=== PATIENT | male | born 1940 ===

== ENCOUNTER 2018-03-08 10:18 | Inpatient (IN) | payer MEDICARE ==
--- NOTE | 2018-03-08 10:27 | ED PDOC ---
Arrival/HPI - General Time Seen by Provider: 03/08/18 10:23 Historian: Patient, EMS - History of Present Illness Narrative History of Present Illness (Text): 03/08/18 10:33 77 Year old male, who presents via EMS to the Emergency department s/p almost "passing out" witnessed by bystanders prior to arrival. Per EMS, bystanders had called in stating the patient was almost about to pass out but once EMS got to him patient was alert. When EMS made patient stand, he rolled his eyes back " for a few seconds" but became responsive once he was lying down. Patient is currently complaining of intermittent lower abdominal pain, associated with lack of appetite and generalized weakness. He denies headache. Denies chest pain. Denies shortness of breath. Denies nausea or vomiting. PMD: Dr. Wei 03/08/18 16:44 Time/Duration: Prior to Arrival Symptom Onset: Sudden Symptom Course: Unchanged Context: Street Past Medical History - Provider Review Nursing Documentation Reviewed: Yes Family/Social History - Physician Review Nursing Documentation Reviewed: Yes Family/Social History: Unknown Family HX Allergies/Home Meds Allergies/Adverse Reactions: Allergies No Known Allergies Allergy (Verified 03/08/18 10:30) Home Medications: Home Meds Medication Instructions Recorded Confirmed No Known Home Med 03/08/18 03/08/18 Review of Systems - Review of Systems Constitutional: Fatigue, Weight Change. absent: Fevers, Night Sweats Eyes: Vision Changes. absent: Photophobia, Eye Pain Respiratory: absent: SOB, Cough Cardiovascular: absent: Chest Pain Gastrointestinal: Abdominal Pain, Diarrhea, Appetite Changes. absent: Nausea, Vomiting Genitourinary Male: Urinary Output Changes. absent: Dysuria, Hematuria Musculoskeletal: absent: Back Pain Skin: absent: Rash Neurological: absent: Headache, Dizziness Endocrine: absent: Diaphoresis Hemo/Lymphatic: absent: Easy Bleeding Psychiatric: absent: Depression Physical Exam - Physical Exam Narrative Physical Exam (Text): 03/08/18 Head: Atraumatic. Normocephalic. Eyes: PERRL. EOMI. Conjunctivae are pale. ENT: Mucous membranes are dry. Oropharynx is clear and symmetric. No edema or exudates. No stridor. Neck: Supple. Full ROM. No JVD. No lymphadenopathy. Cardiovascular: Regular rate. Regular rhythm. Systolic murmur. Distal pulses are 2+ and symmetric. Pulmonary/Chest: No evidence of respiratory distress. Clear to auscultation bilaterally. No wheezing, rales or rhonchi. Abdominal: Soft and non-distended. Mild left lower quadrant abdominal pain. No rebound, guarding, or rigidity. No organomegaly. Good bowel sounds. Back: No CVA tenderness. No midline tenderness. Genitourinary: no testicular edema or erythema, indwelling bunch catheter in place Rectal: no active bleeding or melena Extremities: No edema. No cyanosis. No clubbing. Full range of motion in all extremities. No calf tenderness. Skin: Skin is pale and diaphoretic. No petechiae. No purpura. Neurological: Alert, awake, and oriented. Motor and sensory exam intact. No slurred speech. No facial droop. Psychiatric: Good eye contact. Normal interaction, affect, and behavior. 03/08/18 16:58 Vital Signs Reviewed: Yes Vital Signs Temp Pulse Resp BP Pulse Ox 03/08/18 15:11 98 F 71 18 113/62 98 03/08/18 13:00 74 18 119/77 98 03/08/18 11:40 97.6 F 70 18 109/70 99 03/08/18 10:37 97.4 F L 61 18 99/49 L 100 Temperature: Afebrile Blood Pressure: Hypotensive Pulse: Regular Respiratory Rate: Normal Appearance: Positive for: Non-Toxic, Comfortable, Cachectic Pain Distress: Mild Mental Status: Positive for: Alert and Oriented X 3 Medical Decision Making ED Course and Treatment: 03/08/18 Impression: Patient evaluated upon arrival. History supplemented by friends and family at bedside. Patient currently is alert, conversive, no focal deficits. Mild hypotension noted. IV fluids given. He states that he is unaware of his medical history but states he travels back and forth from [facility] and recently evaluated by a ham passer as well as Dr. Yohan Wei. Call placed to his PMD to obtain further history. Plan: -- EKG -- CXR -- CT Head -- CT abdomen and pelvis -- Labs -- Sodium Chloride -- Urinalysis -- Reassess and disposition Progress Notes: 03/08/18 10:50 Case discussed with patient's PMD Dr. Fede Wei, to obtain further history. Patient has been evaluated by him and gastroentrologist and has had complaints of weight loss. Patient reportedly has PMH of hydronephrosis with indwelling folley as well as elevated PSA. Given this history we will initiated IV hydration as patient is hypotensive, obtain labs, and scan abdomen and pelvis. 03/08/18 11:30 Based on a fax sent by Dr. Wei, the CT abdomen and pelvis scan was taken on and showed the following impressions: 1. Circumferential soft tissue thickening of the bladder wall could related to severe hypertrophy or malignant infiltration. There is resultant bilateral severe hydronephrosis and hydroureter likely secondary to obstruction at the level of the bladder trigone's. 2. Metastatic nodules identified within the lung bases. 3. Metastatic sclerotic osseous lesions within the lumbar spine and sacrum. No appreciable acute fracture. 4. Low-attenuation lesions within the liver are nonspecific and could related to benign or aggressive etiologies. THIS CT RESULT IS FROM 02/18/18. Patient with serial exams is comfortable while laying on stretcher. No further abdominal pain. No headache. No fever. Repeat CT obtained here at [place], it is suggestive of possible metastatic process. Case d/w hospitalist, covering for Dr. Wei, patient admitted for syncope, possible metastatic cancer. On re-exam, he has improved BP, no focal motor or sensory deficits. 03/08/18 17:10 - Lab Interpretations Lab Results: 03/08/18 10:40 03/08/18 10:40 Lab Results 03/08/18 10:40: pO2 40, VBG pH 7.29 L, VBG pCO2 50.0, VBG HCO3 24.0, VBG Total CO2 25.5, VBG O2 Sat (Calc) 80.9 H, VBG Base Excess -3.1 L, VBG Potassium 4.1, Sodium 140.0, Chloride 111.0 H, Glucose 126 H, Lactate 1.4, FiO2 21.0, Venous Blood Potassium 4.1 03/08/18 10:40: PT 12.1, INR 1.05, APTT 27.8 03/08/18 10:40: WBC 7.4, RBC 3.25 L, Hgb 9.9 L, Hct 29.0 L, MCV 89.2, MCH 30.5, MCHC 34.1, RDW 13.5, Plt Count 272, MPV 9.1, Gran % 50.3, Lymph % (Auto) 37.3 H , [place] % (Auto) 7.3 H, Eos % (Auto) 4.7, Baso % (Auto) 0.4, Gran # 3.74, Lymph # (Auto) 2.8, [place] # (Auto) 0.5, Eos # (Auto) 0.4, Baso # (Auto) 0.03 03/08/18 10:40: Sodium 143, Chloride 108 H, Potassium 4.1, Carbon Dioxide 24, Anion Gap 16, BUN 33 H, Creatinine 1.4, Est GFR ( Amer) 59, Est GFR (Non- Af Amer) 49, Random Glucose 121 H, Calcium 8.6, Magnesium 1.9, Total Bilirubin < 0.1 L, AST 23, ALT 31, Alkaline Phosphatase 156 H, Lactate Dehydrogenase 337, Total Creatine Kinase 37, Troponin I < 0.01, NT-Pro-B Natriuret Pep 121, Total Protein 6.7, Albumin 3.7, Globulin 3.0, Albumin/Globulin Ratio 1.3, Amylase 75, Lipase < 10 L I have reviewed the lab results: Yes - RAD Interpretation Radiology Orders: 03/08/18 10:37 CHEST PORTABLE [RAD] Stat 03/08/18 10:38 HEAD W/O CONTRAST [CT] Stat 03/08/18 10:46 ABD & PELVIS W/O PO OR IV CONT [CT] Stat Director Hospice Operations: Radiologist - EKG Interpretation EKG Interpretation (Text): 03/08/18 16:57 EKG at 1032 normal sinus rhythm rate of 61 with right bundle branch block Interpreted by ED Physician: Yes Type: 12 lead EKG - Medication Orders Current Medication Orders: Acetaminophen (Tylenol 325mg Tab) 650 mg PO Q6H PRN PRN Reason: Fever >100.4 F Enoxaparin Sodium (Lovenox) 40 mg SC Q24H ROBBI PRN Reason: Protocol Famotidine (Pepcid) 20 mg PO 1000,2200 ROBBI Ondansetron HCl (Zofran Inj) 4 mg IVP Q6H PRN PRN Reason: Nausea/Vomiting Discontinued Medications Enoxaparin Sodium (Lovenox) 70 mg SC Q24H ROBBI PRN Reason: Protocol Last Admin: 03/08/18 15:07 Dose: 70 mg Subcutaneous Administrations Document 03/08/18 15:07 BECKY (Rec: 03/08/18 15:08 BECKY [id number]) Injection Site MAR Injection Site Right Abdomen Charges for Administration # of Subcutaneous Administrations 1 Sodium Chloride (Sodium Chloride 0.9%) 1,000 mls @ 1,000 mls/hr IV .Q1H STA Stop: 03/08/18 11:37 Last Admin: 03/08/18 11:10 Dose: 1,000 mls/hr eMAR Start Stop Document 03/08/18 11:10 BECKY (Rec: 03/08/18 11:36 BECKY [id number]) Intravenous Solution Start Date 03/08/18 Start Time 11:10 End Date 03/08/18 End time 12:10 Total Infusion Time 60 Sodium Chloride (Sodium Chloride 0.9%) 2,000 mls @ 999 mls/hr IV .Q2H1M STA Stop: 03/08/18 16:01 Last Admin: 03/08/18 14:15 Dose: 999 mls/hr eMAR Start Stop Document 03/08/18 14:15 BECKY (Rec: 03/08/18 14:21 BECKY [id number]) Intravenous Solution Start Date 03/08/18 Start Time 14:15 End Date 03/08/18 End time 16:15 Total Infusion Time 120 - Scribe Statement The provider has reviewed the documentation as recorded by the Gibson Hudson Provider Scribe Attestation: All medical record entries made by the Scribe were at my direction and personally dictated by me. I have reviewed the chart and agree that the record accurately reflects my personal performance of the history, physical exam, medical decision making, and the department course for this patient. I have also personally directed, reviewed, and agree with the discharge instructions and disposition. Disposition/Present on Arrival - Present on Arrival Any Indicators Present on Arrival: Yes Urinary Catheter: Yes - Disposition Have Diagnosis and Disposition been Completed?: Yes Diagnosis: Syncope, Metastatic cancer, Anemia Disposition: HOSPITALIZED Disposition Time: 12:35 Patient Plan: Admission, Telemetry Patient Problems: Current Active Problems Problem Status Onset Anemia Acute Metastatic cancer Acute Syncope Acute Condition: SERIOUS
[2018-03-08] MEDS ORDERED: Sodium Chloride 0.9% 1,000 ML IV STA (10:38)
--- NOTE | 2018-03-08 11:02 | RAD ---
HISTORY: syncope COMPARISON: No prior. FINDINGS: LUNGS: No active pulmonary disease. PLEURA: No significant pleural effusion identified, no pneumothorax apparent. CARDIOVASCULAR: Normal. OSSEOUS STRUCTURES: No significant abnormalities. VISUALIZED UPPER ABDOMEN: Normal. OTHER FINDINGS: None. IMPRESSION: No active disease.
[2018-03-08 11:16] LABS: BASO # 0.03 K/mm3 (0.0-2.0); BASO % 0.4 % (0.0-3.0); EOS # 0.4 (0.0-0.7); EOS % 4.7 % (1.5-5.0); GRAN # 3.74 (1.4-6.5); GRAN % 50.3 % (50.0-68.0); HEMOGLOBIN 9.9 g/dL (14.0-18.0); LYMPH # 2.8 (1.2-3.4); LYMPH % 37.3 % (22.0-35.0); MEAN CELL VOLUME 89.2 fl (80.0-105.0); MEAN CORPUSCULAR HEMOGLOBIN 30.5 pg (25.0-35.0); MEAN CORPUSCULAR HGB CONC 34.1 g/dl (31.0-37.0); MEAN PLATELET VOLUME 9.1 fl (7.0-11.0); MONO # 0.5 (0.1-0.6); MONO % 7.3 % (1.0-6.0); RBC 3.25 10^6/uL (3.5-6.1); RED CELL DISTRIBUTION WIDTH 13.5 % (11.5-14.5); WHITE BLOOD COUNT 7.4 10^3/ul (4.5-11.0)
[2018-03-08 11:17] LABS: VENOUS BLOOD GAS BASE EXCESS -3.1 mmol/L (0.0-2.0); VENOUS BLOOD GAS PO2 40 mm/Hg (30-55); VENOUS BLOOD PH 7.29 (7.32-7.43)
[2018-03-08 11:25] LABS: ALB/GLOB RATIO 1.3 (1.1-1.8); ALBUMIN 3.7 g/dL (3.0-4.8); ALT/SGPT 31 U/L (7-56); AMYLASE 75 U/L (35-125); AST/SGOT 23 U/L (17-59); BLOOD UREA NITROGEN 33 mg/dL (7-21); CALCIUM 8.6 mg/dL (8.4-10.5); GFR AFRICAN-AMERICAN 59; GFR NON-AFRICAN AMERICAN 49
[2018-03-08 11:26] LABS: INR 1.05 (0.93-1.08); PROTHROMBIN TIME 12.1 SECONDS (9.4-12.5)
[2018-03-08 11:27] LABS: PARTIAL THROMBOPLASTIN TIME 27.8 Seconds (25.1-36.5)
[2018-03-08 11:34] LABS: LIPASE < 10 U/L (23-300)
[2018-03-08 11:37] LABS: B-TYPE NATRIURETIC PEPTIDE 121 pg/mL (0-450); TROPONIN I < 0.01 ng/mL
--- NOTE | 2018-03-08 11:37 | CT ---
PROCEDURE: CT HEAD WITHOUT CONTRAST. HISTORY: syncope COMPARISON: None available. TECHNIQUE: Axial computed tomography images were obtained through the head/brain without intravenous contrast. Radiation dose: Total exam DLP = 802.44 mGy-cm. This CT exam was performed using one or more of the following dose reduction techniques: Automated exposure control, adjustment of the mA and/or kV according to patient size, and/or use of iterative reconstruction technique. FINDINGS: HEMORRHAGE: No intracranial hemorrhage. BRAIN: No mass effect or edema. Mild periventricular white matter lucency consistent with chronic microvascular ischemic change. No evidence of acute infarct. 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 VENTRICLES: Unremarkable. No hydrocephalus. CALVARIUM: Unremarkable. PARANASAL SINUSES: Unremarkable as visualized. No significant inflammatory changes. MASTOID AIR CELLS: Unremarkable as visualized. No inflammatory changes. OTHER FINDINGS: None. IMPRESSION: No intracranial mass, hemorrhage or evidence of acute infarct. Mild atrophy and mild chronic white matter ischemic change. 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
--- NOTE | 2018-03-08 11:50 | CT ---
PROCEDURE: CT Abdomen and Pelvis without intravenous contrast HISTORY: abdomnal pain, ? hx of malignancy COMPARISON: None. TECHNIQUE: Without contrast.. Contrast dose: 0 Radiation dose: Total exam DLP = 464.14 mGy-cm. This CT exam was performed using one or more of the following dose reduction techniques: Automated exposure control, adjustment of the mA and/or kV according to patient size, and/or use of iterative reconstruction technique. FINDINGS: LOWER THORAX: No infiltrate. Multiple small nodules at lung bases, largest 8 mm in right middle lobe. Cardiomegaly and trace pericardial effusion. LIVER: Normal size and contour. Several nonspecific rounded low-attenuation lesions in the left lobe of the liver, largest 4.7 cm. Nonspecific. Correlate with ultrasound. GALLBLADDER AND BILE DUCTS: Unremarkable. PANCREAS: Severe fatty atrophy. No mass appreciated. No evidence of pancreatitis. SPLEEN: Normal size. There is a rind -like calcification measuring 1.7 cm in greatest dimension. Uncertain significance. Possible calcified hemangioma/lymphangioma. ADRENALS: Unremarkable. No mass. KIDNEYS AND URETERS: Low-density vaguely ovoid mass lower pole right kidney, 1.9 x 3.3 cm, with a small amount of mural calcification. Uncertain significance. This should be correlated with ultrasound examination any prior outside CT examination. No other renal mass. No hydronephrosis. VASCULATURE: Unremarkable. No aortic aneurysm. BOWEL: Unremarkable. No obstruction. No gross mural thickening. APPENDIX: Not identified. No secondary findings to suggest acute appendicitis. PERITONEUM: No ascites or pneumoperitoneum. There is ill-defined increased attenuation in the region of the left internal inguinal ring. Please correlate with any history of herniorrhaphy. LYMPH NODES: Unremarkable. No enlarged lymph nodes. BLADDER: Bladder is significant for the presence of a Cord[place] catheter. The bladder contents are high in attenuation suggesting possible hematuria. Please correlate. Alternatively, this could represent very concentrated urine from dehydration. REPRODUCTIVE: Normal prostate BONES: Sclerotic osseous metastasis noted in multiple lumbosacral vertebrae. OTHER FINDINGS: None. IMPRESSION: Multiple small nodules at lung bases. Sclerotic osseous metastases. Nonspecific low-density masses in left lobe of liver. Correlate with ultrasound examination. Nonspecific low-density mass in lower pole right kidney with some curvilinear mural calcification. Correlate with ultrasound. Please correlate these findings of any prior outside CT examinations. High attenuation of bladder contents. Please correlate for possible hematuria. Please correlate for any history of prior left herniorrhaphy.
[2018-03-08 13:39] LABS: URINE BILIRUBIN NEGATIVE (NEGATIVE); URINE BLOOD MODERATE (NEGATIVE); URINE GLUCOSE (UA) NEGATIVE (NEGATIVE); URINE LEUKOCYTE ESTERASE SMALL Leu/uL (NEGATIVE); URINE PROTEIN 30 mg/dL (<30 mg/dL); URINE UROBILINOGEN 0.2 E.U./dL (<1 E.U./dL)
[2018-03-08 13:40] LABS: URINE APPEARANCE CLEAR (CLEAR); URINE COLOR YELLOW (YELLOW)
--- NOTE | 2018-03-08 13:46 | CARD ---
APPROVED REPORT EKG Measurement Heart [id number] <Conclusion> Normal sinus rhythm Right bundle branch block Abnormal ECG
[2018-03-08 13:56] LABS: URINE BACTERIA TRACE (NEG)
[2018-03-08] MEDS ORDERED: Sodium Chloride 0.9% 2,000 ML IV STA (14:01)
--- NOTE | 2018-03-08 14:35 | CP.PCM.HP ---
<Martin Garciaon Monty - Last Filed: 03/08/18 15:47> History of Present Illness - History of Present Illness History of Present Illness: Chief Complaint: Fall due to Lightheadedness without loss of consciousness HPI: Patient is a 77 M with a history of possible cancer mets with unknown primary source presenting with complaints of abdominal pain and lightheadedness which led to him falling this morning. Patient states he woke up feeling fine however he has not been eating as much as of late. Today he took medication on an empty stomach then later this morning patient states he did not drink however consumed a muffin. When walking he felt lightheaded and as a result tried to hold on to a light pole and then fell to the ground causing an abrasion on his left elbow. Patient denies loss of consciousness, head trauma, changes in vision, urinary/bowel incontinence, chest pain, palpitations, headaches, body aches, body injuries, fevers, chills. PMD: Dr. Wei Surgical history: appendectomy, hernia repair Social history: Denies tobacco and drug abuse. Admits to occasional socia lalcohol use Past medical history: denies Family history: significant for cancer in mother: esophageal (no previous history of tobacco/alcohol abuse), mother's siblings: gastric cancer, lung cancer Allergies: denies CT abdomen/pelvis: Lungs: multiple small nodules at lung bases, largest 8 mm in right middle lobe. Liver: low attenuation lesions in the left lobe of the liver , largest 4.7 cm. Kidneys and ureters; low density vaguely ovoid mass lower pole right kidney 1.9 x 3.3 cm. Bones: sclerotic osseous metastasis noted in multiple lumbosacral vertebrae. Colonoscopy findings: tubular adenoma polyp of transverse colon 6 mm, moderate diverticulosis of left side of colon and transverse colon, internal hemorrhoids Gastrum findings: h. pylori gastritis Mid esophagus: no intestinal metaplasia Present on Admission - Present on Admission Any Indicators Present on Admission: No Review of Systems - Constitutional Constitutional: Anorexia, Weight Loss, Weakness. absent: Chills, Frequent Falls (one fall), Headache, Night Sweats - EENT Eyes: absent: Blurred Vision, Diplopia - Cardiovascular Cardiovascular: absent: Chest Pain, Dyspnea - Respiratory Respiratory: absent: Cough, Dyspnea - Gastrointestinal Gastrointestinal: Nausea. absent: Diarrhea, Vomiting - Genitourinary Genitourinary: absent: Hematuria - Musculoskeletal Musculoskeletal: absent: Back Pain - Neurological Neurological: Dizziness. absent: Headaches - Psychiatric Psychiatric: Change in Appetite (loss of appetite) - Endocrine Endocrine: absent: Polyphagia, Polyuria Past Patient History - Infectious Disease Hx of Infectious Diseases: None - Past Social History Smoking Status: Never Smoked - PSYCHIATRIC Hx Substance Use: No - SURGICAL HISTORY Hx Surgeries: Yes Hx Appendectomy: Yes Hx Herniorrhaphy: Yes Hx Orthopedic Surgery: Yes (Left Shoulder) Meds Allergies/Adverse Reactions: Allergies Allergy/AdvReac Type Severity Reaction Status Date / Time No Known Allergies Allergy Verified 03/08/18 10:30 Physical Exam - Head Exam Head Exam: ATRAUMATIC, NORMAL INSPECTION, NORMOCEPHALIC - Eye Exam Eye Exam: EOMI, Normal appearance - ENT Exam ENT Exam: Mucous Membranes Moist, Normal Exam - Neck Exam Neck exam: Positive for: Normal Inspection - Respiratory Exam Respiratory Exam: Clear to Auscultation Bilateral, NORMAL BREATHING PATTERN. absent: Rhonchi, Wheezes - Cardiovascular Exam Cardiovascular Exam: REGULAR RHYTHM, +S1, +S2 - GI/Abdominal Exam GI & Abdominal Exam: Normal Bowel Sounds, Soft - Extremities Exam Extremities exam: Positive for: normal inspection - Back Exam Back exam: NORMAL INSPECTION - Neurological Exam Neurological exam: Alert, CN II-XII Intact, Oriented x3 - Psychiatric Exam Psychiatric exam: Normal Affect, Normal Mood - Skin Skin Exam: Normal Color, Warm Results - Vital Signs Recent Vital Signs: Last Vital Signs Temp 97.4 F L 03/08/18 10:37 Pulse 61 03/08/18 10:37 Resp 18 03/08/18 10:37 BP 99/49 L 03/08/18 10:37 Pulse Ox 100 03/08/18 10:37 - Labs Result Diagrams: 03/08/18 10:40 03/08/18 10:40 Labs: Laboratory Results - last 24 hr 03/08/18 13:20 Urine Color Yellow Urine Appearance Clear Urine pH 6.0 Ur Specific [place] 1.015 Urine Protein 30 H Urine Glucose (UA) Negative Urine Ketones Negative Urine Blood Moderate H Urine Nitrate Negative Urine Bilirubin Negative Urine Urobilinogen 0.2 Ur Leukocyte Esterase Small H Urine RBC 2 - 5 Urine WBC 5 - 10 Urine Bacteria Trace Assessment & Plan - Assessment and Plan (Free Text) Assessment: 77 M with no significant past medical history recently found to have 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 Plan: Syncope secondary to dehydration -Echocardiogram ordered -Carotid duplex ultrasound ordered; results pending -Orthostatic vital signs ordered -2 liters of fluids -CT chest ordered -Serial troponins ordered; first result negative -TSH ordered -Physical therapy Cancer Metastasis -CT abdomen/pelvis: Lungs: multiple small nodules at lung bases, largest 8 mm in right middle lobe. Liver: low attenuation lesions in the left lobe of the liver, largest 4.7 cm. Kidneys and ureters; low density vaguely ovoid mass lower pole right kidney 1.9 x 3.3 cm. Bones: sclerotic osseous metastasis noted in multiple lumbosacral vertebrae. -Patient to follow up with PMD regarding findings History of urinary retention/Bilateral hydronephrosis/Chronic indwelling bunch catheter -Patient endorses history of hematuria -Patient originally scheduled for bunch assessment tomorrow at [place] -Urology consult DVT/GI prophylaxis: Lovenox,Protonix <Celina Vizcaino - Last Filed: 03/09/18 16:09> Results - Vital Signs Recent Vital Signs: Last Vital Signs Temp 98.1 F 03/09/18 11:50 Pulse 72 03/09/18 11:50 Resp 18 03/09/18 11:50 BP 117/56 L 03/09/18 11:50 Pulse Ox 98 03/09/18 06:00 - Labs Result Diagrams: 03/09/18 07:45 03/09/18 07:45 Labs: Laboratory Results - last 24 hr 03/08/18 03/08/18 03/08/18 16:00 16:00 22:46 WBC RBC Hgb Hct MCV MCH MCHC RDW Plt Count MPV Gran % Lymph % (Auto) [place] % (Auto) Eos % (Auto) Baso % (Auto) Gran # Lymph # (Auto) [place] # (Auto) Eos # (Auto) Baso # (Auto) Sodium Potassium Chloride Carbon Dioxide Anion Gap BUN Creatinine Est GFR ( Amer) Est GFR (Non-Af Amer) Random Glucose Calcium Total Bilirubin AST ALT Alkaline Phosphatase Troponin I < 0.01 < 0.01 Total Protein Albumin Globulin Albumin/Globulin Ratio TSH 3rd Generation 4.63 03/09/18 03/09/18 07:45 07:45 WBC 6.2 RBC 3.14 L Hgb 9.5 L Hct 28.0 L MCV 89.2 MCH 30.3 MCHC 33.9 RDW 13.8 Plt Count 231 MPV 9.0 Gran % 62.6 Lymph % (Auto) 24.0 [place] % (Auto) 7.8 H Eos % (Auto) 5.0 Baso % (Auto) 0.6 Gran # 3.86 Lymph # (Auto) 1.5 [place] # (Auto) 0.5 Eos # (Auto) 0.3 Baso # (Auto) 0.04 Sodium 145 Potassium 4.9 Chloride 112 H Carbon Dioxide 23 Anion Gap 14 BUN 30 H Creatinine 1.3 Est GFR ( Amer) > 60 Est GFR (Non-Af Amer) 53 Random Glucose 92 Calcium 8.7 Total Bilirubin 0.1 L AST 22 ALT 30 Alkaline Phosphatase 148 H Troponin I Total Protein 6.3 Albumin 3.5 Globulin 2.9 Albumin/Globulin Ratio 1.2 TSH 3rd Generation Attending/Attestation - Attestation I have personally seen and examined this patient.: Yes I have fully participated in the care of the patient.: Yes I have reviewed all pertinent clinical information: Yes Notes (Text): 03/09/18 16:06 Medical record note made by the resident after discussion with my direction and input after the patient was personally seen and examined by me. I have reviewed the chart and agree that the record accurately reflects by personal performance of the history, physical exam, data review, and medical decision-making, in the course for the patient. I have also personally directed the plan of care. 77 Years old male with PMH of recent admission at [facility] for hematuria, bilateral hydronephrosis , he is on indwelling Bunch cathere,has H/ O bony , liver and lung metastasis, Primary is unknown, could be Prostate is admitted with Presyncope and fall due to hypotension . Patient Neuro examination is normal.There is no focal deficit.Patient symptoms are improved with IV hydration. We will also get Urology evaluation. Management plan was discussed in detail with patient. Education was provided.
[2018-03-08] MEDS ORDERED: Enoxaparin 80 mg Syringe SC SCH (15:00)
--- NOTE | 2018-03-08 15:32 | CT ---
PROCEDURE: CT Chest without contrast HISTORY: multiple small nodules at lung bases COMPARISON: None. TECHNIQUE: Contiguous axial images were obtained through the chest without intravenous contrast enhancement. Sagittal and coronal reconstructions were performed. Radiation dose (DLP): 306 mGy-cm. This CT exam was performed using one or more of the following dose reduction techniques: Automated exposure control, adjustment of the mA and/or kV according to patient size, and/or use of iterative reconstruction technique. FINDINGS: LUNGS: There is a 13 mm nodule in the right middle lobe image 69 series 3. There is a grouping of small nodules in the inferior aspect of the right upper lobe the largest measuring 6 mm. This can be seen on image 62. There is also a 9 mm nodule in the left upper lobe image 65. 4 mm nodule in the left lower lobe adjacent to the aorta image 89. MEDIASTINUM: Unremarkable thoracic aorta. No aneurysm. Normal sized heart. Main pulmonary artery unremarkable. No vascular congestion. No lymphadenopathy. PLEURA: No pleural fluid. No pneumothorax. BONES: No fracture. No destructive lesion. UPPER ABDOMEN: Simple cysts in the liver OTHER FINDINGS: None. IMPRESSION: Multiple pulmonary nodules the largest in the right middle lobe measuring 13 mm. Findings consistent with metastatic disease.
[2018-03-08] MEDS ORDERED: Enoxaparin 40 mg Syringe SC SCH (16:29)
[2018-03-08 20:09] VITALS: BMI 19.8
[2018-03-08] MEDS ORDERED: Pneumococcal 23-Valent Vaccine IM ONE (20:09)
--- NOTE | 2018-03-08 21:47 | US ---
PROCEDURE: Bilateral carotid artery duplex us HISTORY: Carotid stenosis PHYSICIAN(S): Dayne Soto MD. TECHNIQUE: Duplex sonography and color-flow Doppler were used to evaluate the carotid bifurcations and limited segments of the vertebral arteries bilaterally. FINDINGS: There is mild to moderate smooth heterogeneous plaque noted at the carotid bifurcations bilaterally. The peak systolic velocity in the proximal right internal carotid artery is 104 cm/sec. This corresponds to a 20 to 39% proximal right ICA stenosis. Normal systolic velocities are noted in the proximal right external carotid artery. There is antegrade flow in the right vertebral artery. The peak systolic velocity in the proximal left internal carotid artery is 130 Cm/sec. This corresponds to a 40-59% proximal left ICA stenosis. Normal systolic velocities are noted in the proximal left external carotid artery. There is antegrade flow in the left vertebral artery. IMPRESSION: 1. 40-59% proximal left ICA stenosis. 2. 20-39% proximal right ICA stenosis. 3. Antegrade flow in both vertebral arteries.
[2018-03-09 06:14] VITALS: O2SAT 98
[2018-03-09 08:06] LABS: BASO # 0.04 K/mm3 (0.0-2.0); BASO % 0.6 % (0.0-3.0); EOS # 0.3 (0.0-0.7); GRAN # 3.86 (1.4-6.5); GRAN % 62.6 % (50.0-68.0); HEMOGLOBIN 9.5 g/dL (14.0-18.0); LYMPH # 1.5 (1.2-3.4); MEAN CELL VOLUME 89.2 fl (80.0-105.0); MEAN CORPUSCULAR HEMOGLOBIN 30.3 pg (25.0-35.0); MEAN CORPUSCULAR HGB CONC 33.9 g/dl (31.0-37.0); MONO # 0.5 (0.1-0.6); MONO % 7.8 % (1.0-6.0); RBC 3.14 10^6/uL (3.5-6.1); RED CELL DISTRIBUTION WIDTH 13.8 % (11.5-14.5); WHITE BLOOD COUNT 6.2 10^3/ul (4.5-11.0)
[2018-03-09 08:15] LABS: ALB/GLOB RATIO 1.2 (1.1-1.8); ALBUMIN 3.5 g/dL (3.0-4.8); ALT/SGPT 30 U/L (7-56); AST/SGOT 22 U/L (17-59); BLOOD UREA NITROGEN 30 mg/dL (7-21); CALCIUM 8.7 mg/dL (8.4-10.5); GFR AFRICAN-AMERICAN > 60; GFR NON-AFRICAN AMERICAN 53
[2018-03-09 11:50] VITALS: BP 117/56; PULSE 72; RESP 18; TEMP 98.1
--- NOTE | 2018-03-09 14:21 | CP.PCM.DIS ---
Provider - Provider Date of Admission: 03/08/18 12:15 Attending physician: Celina Vizcaino MD Primary care physician: Jules Wei MD Consults: Urology: Dr. Ramy Alcala Time Spent in preparation of Discharge (in minutes): 40 Diagnosis - Discharge Diagnosis (1) Pre-syncope Status: Acute Priority: High (2) Hypotension Status: Acute Priority: High (3) Loss of appetite Status: Chronic Priority: High (4) Anemia Status: Chronic Priority: Medium (5) Metastatic cancer Status: Acute Priority: High (6) UTI (urinary tract infection) Status: Acute Priority: Low Hospital Course - Lab Results Lab Results: Micro Results 03/08/18 13:20 Urine Urine Culture - Preliminary Gram Positive Cocci Most Recent Lab Values WBC 6.2 10^3/ul (4.5-11.0) 03/09/18 07:45 RBC 3.14 10^6/uL (3.5-6.1) L 03/09/18 07:45 Hgb 9.5 g/dL (14.0-18.0) L 03/09/18 07:45 Hct 28.0 % (42.0-52.0) L 03/09/18 07:45 MCV 89.2 fl (80.0-105.0) 03/09/18 07:45 MCH 30.3 pg (25.0-35.0) 03/09/18 07:45 MCHC 33.9 g/dl (31.0-37.0) 03/09/18 07:45 RDW 13.8 % (11.5-14.5) 03/09/18 07:45 Plt Count 231 10^3/uL (120.0-450.0) 03/09/18 07:45 MPV 9.0 fl (7.0-11.0) 03/09/18 07:45 Gran % 62.6 % (50.0-68.0) 03/09/18 07:45 Lymph % (Auto) 24.0 % (22.0-35.0) 03/09/18 07:45 [place] % (Auto) 7.8 % (1.0-6.0) H 03/09/18 07:45 Eos % (Auto) 5.0 % (1.5-5.0) 03/09/18 07:45 Baso % (Auto) 0.6 % (0.0-3.0) 03/09/18 07:45 Gran # 3.86 (1.4-6.5) 03/09/18 07:45 Lymph # (Auto) 1.5 (1.2-3.4) 03/09/18 07:45 [place] # (Auto) 0.5 (0.1-0.6) 03/09/18 07:45 Eos # (Auto) 0.3 (0.0-0.7) 03/09/18 07:45 Baso # (Auto) 0.04 K/mm3 (0.0-2.0) 03/09/18 07:45 PT 12.1 SECONDS (9.4-12.5) 03/08/18 10:40 INR 1.05 (0.93-1.08) 03/08/18 10:40 APTT 27.8 Seconds (25.1-36.5) 03/08/18 10:40 pO2 40 mm/Hg (30-55) 03/08/18 10:40 VBG pH 7.29 (7.32-7.43) L 03/08/18 10:40 VBG pCO2 50.0 (40-60) 03/08/18 10:40 VBG HCO3 24.0 mmol/l (21-28) 03/08/18 10:40 VBG Total CO2 25.5 mmol.L (22-28) 03/08/18 10:40 VBG O2 Sat (Calc) 80.9 % (40-65) H 03/08/18 10:40 VBG Base Excess -3.1 mmol/L (0.0-2.0) L 03/08/18 10:40 VBG Potassium 4.1 mmol/L (3.6-5.2) 03/08/18 10:40 Sodium 140.0 mmol/L (132-148) 03/08/18 10:40 Chloride 111.0 mmol/L (98-107) H 03/08/18 10:40 Glucose 126 mg/dl (75-110) H 03/08/18 10:40 Lactate 1.4 mmol/L (0.7-2.1) 03/08/18 10:40 FiO2 21.0 % 03/08/18 10:40 Sodium 145 mmol/L (132-148) 03/09/18 07:45 Potassium 4.9 mmol/L (3.6-5.0) 03/09/18 07:45 Chloride 112 mmol/L (98-107) H 03/09/18 07:45 Carbon Dioxide 23 mmol/L (21-33) 03/09/18 07:45 Anion Gap 14 (10-20) 03/09/18 07:45 BUN 30 mg/dL (7-21) H 03/09/18 07:45 Creatinine 1.3 mg/dl (0.8-1.5) 03/09/18 07:45 Est GFR ( Amer) > 60 03/09/18 07:45 Est GFR (Non-Af Amer) 53 03/09/18 07:45 Random Glucose 92 mg/dL (70-110) 03/09/18 07:45 Calcium 8.7 mg/dL (8.4-10.5) 03/09/18 07:45 Magnesium 1.9 mg/dL (1.7-2.2) 03/08/18 10:40 Total Bilirubin 0.1 mg/dL (0.2-1.3) L 03/09/18 07:45 AST 22 U/L (17-59) 03/09/18 07:45 ALT 30 U/L (7-56) 03/09/18 07:45 Alkaline Phosphatase 148 U/L (38-126) H 03/09/18 07:45 Lactate Dehydrogenase 337 U/L (333-699) 03/08/18 10:40 Total Creatine Kinase 37 U/L (35-230) 03/08/18 10:40 Troponin I < 0.01 ng/mL 03/08/18 22:46 NT-Pro-B Natriuret Pep 121 pg/mL (0-450) 03/08/18 10:40 Total Protein 6.3 g/dL (5.8-8.3) 03/09/18 07:45 Albumin 3.5 g/dL (3.0-4.8) 03/09/18 07:45 Globulin 2.9 gm/dL 03/09/18 07:45 Albumin/Globulin Ratio 1.2 (1.1-1.8) 03/09/18 07:45 Amylase 75 U/L (35-125) 03/08/18 10:40 Lipase < 10 U/L (23-300) L 03/08/18 10:40 TSH 3rd Generation 4.63 mIU/mL (0.46-4.68) 03/08/18 16:00 Venous Blood Potassium 4.1 mmol/L (3.6-5.2) 03/08/18 10:40 Urine Color Yellow (YELLOW) 03/08/18 13:20 Urine Appearance Clear (CLEAR) 03/08/18 13:20 Urine pH 6.0 (4.7-8.0) 03/08/18 13:20 Ur Specific [place] 1.015 (1.005-1.035) 03/08/18 13:20 Urine Protein 30 mg/dL (<30 mg/dL) H 03/08/18 13:20 Urine Glucose (UA) Negative mg/dL (NEGATIVE) 03/08/18 13:20 Urine Ketones Negative mg/dL (NEGATIVE) 03/08/18 13:20 Urine Blood Moderate (NEGATIVE) H 03/08/18 13:20 Urine Nitrate Negative (NEGATIVE) 03/08/18 13:20 Urine Bilirubin Negative (NEGATIVE) 03/08/18 13:20 Urine Urobilinogen 0.2 E.U./dL (<1 E.U./dL) 03/08/18 13:20 Ur Leukocyte Esterase Small [place]/uL (NEGATIVE) H 03/08/18 13:20 Urine RBC 2 - 5 /hpf (0-2) 03/08/18 13:20 Urine WBC 5 - 10 /hpf (0-6) 03/08/18 13:20 Urine Bacteria Trace (NEG) 03/08/18 13:20 - Hospital Course Hospital Course: Patient is a 77 year old male with a history of bilateral hydronephrosis s/p chronic indwelling bunch catheter, hematuria, and 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 Radioimaging performed in the emergency department revealed evidence of cancer metastasis. Full report can be assessed on patient's chart for extensive details. Patient was brought to the emergency department for further evaluation. Upon administering fluids patient's symptoms had completely resolved. As part of pre-syncope workup carotid artery dopplers and echocardiogram were ordered. Carotid US results did not require direct intervention and treatment at the moment. Echocardiogram results are still pending and will be followed up by patient's primary care physician. Radioimaging results which showed cancer in the lung, liver, and bone were discussed with patient. Patient declined receiving evaluation and possible treatment by the hematology/oncology department at [facility] stating he prefers to go to [place]. Patient's daughter was also present during the discussion and also wishes to for her father to continue with urology and heme/onc appointments at [place] but would like to continue with Dr. Wei as primary. Discussed case with PMD Dr. Wei and he is aware of the family's desires. Due to patient's history of bunch indwelling catheter and bilateral hydronephrosis, Urology was consulted and patient was started on flomax. Also in lieu of indwelling bunch cather, urinalysis and urine cultures were done. UA reveals mild urinary tract infection and urine cultures were positive for gram positive cocci therefore patient will be sent home on ciprofloxacin. Due to patient being stable from original chief complaint of pre-syncope and lightheadedness as well as increased appetite and toleration of food, patient was cleared for discharge. Patient's daughter expressed that [place] in the [place] for [place] two months a year however I discussed with both the importance for patient to remain [place] the [place] with his new diagnosis of cancer for consistent care. Patient and daughter were both in agreement with plan for discharge and patient was then discharged. Case discussed with Dr. Carrillo Garcia PGY1 Discharge Exam - Head Exam Head Exam: ATRAUMATIC, NORMAL INSPECTION, NORMOCEPHALIC - Eye Exam Eye Exam: EOMI, Normal appearance - ENT Exam ENT Exam: Mucous Membranes Moist - Respiratory Exam Respiratory Exam: Clear to PA & Lateral, NORMAL BREATHING PATTERN, UNREMARKABLE. absent: Rales, Rhonchi, Wheezes - Cardiovascular Exam Cardiovascular Exam: REGULAR RHYTHM, +S1, +S2 - GI/Abdominal Exam GI & Abdominal Exam: Normal Bowel Sounds, Unremarkable - Exam Additional comments: indwelling bunch catheter in place - Extremities Exam Extremities exam: normal inspection - Back Exam Back exam: NORMAL INSPECTION - Neurological Exam Neurological exam: Alert, CN II-XII Intact, Oriented x3 - Psychiatric Exam Psychiatric exam: Normal Affect, Normal Mood - Skin Skin Exam: Normal Color, Warm Discharge Plan - Discharge Medications Prescriptions: Ciprofloxacin [Cipro] 500 mg PO BID #14 tab Mirtazapine [Remeron] 7.5 mg PO DIN #30 tab Tamsulosin [Flomax] 0.4 mg PO DAILY #30 cap - Follow Up Plan Condition: SERIOUS Disposition: HOME/ ROUTINE Instructions: Orthostatic Hypotension (DC), Near Fainting (DC), Syncope (DC), Syncope (GEN) Additional Instructions: Mr. Batista, thank you for letting us take care of you today. Your provider was Dr. Vizcaino and you were treated for pre-syncope. The medical care you received today was directed at your acute symptoms. If you were prescribed any medication, please fill it and take as directed. It may take several days for your symptoms to resolve. Return to the Emergency Department if your symptoms worsen, do not improve, or if you have any other problems. Please contact your doctor or call one of the physicians/clinics you have been referred to that are listed on the Patient Visit Information form that is included in your discharge packet. Bring any paperwork you were given at discharge with you along with any medications you are taking to your follow up visit. Our treatment cannot replace ongoing medical care by a primary care provider outside of the emergency department. Please be sure to follow up with your primary care physician Dr. Jules Wei. Thank you for allowing the [facility] team to be part of your care today. If you had an X-Ray or CT scan: A Radiologist will review the ED reading if any change in treatment is needed we will contact you. If you had a blood, urine, or wound culture: It will take several days for the results, if any change in treatment is needed we will contact you. If you had an STI test: It will take 48 hours for the results. Please call after 1 week if you have not heard back. Referrals: Jules Wei MD [Primary Care Provider] -
--- NOTE | 2018-03-09 16:02 | CARD ---
APPROVED REPORT EXAM: Two-dimensional and M-mode echocardiogram with Doppler and color Doppler. INDICATION PRE-SYNCOPE 2D DIMENSIONS Left Atrium (2D)3.7 (1.6-4.0cm)IVSd1.2 (0.7-1.1cm) LVDd4.3 (3.9-5.9cm)PWd1.1 (0.7-1.1cm) LVDs3.1 (2.5-4.0cm)FS (%) 29.1 % LVEF (%)56.2 (>50%) M-Mode DIMENSIONS Aortic Root3.10 (2.2-3.7cm)Aortic Cusp Exc.1.50 (1.5-2.0cm) Aortic Valve AoV Peak Hhabhazx813.0cm/Monica Peak GR.7mmHg Mitral Valve MV E Mvordjym60.1cm/sMV A Wqwjcwtf36.8cm/sE/A ratio1.4 TDI E/Lateral E'0.0E/Medial E'0.0 Tricuspid Valve TR Peak [id number]/sRAP [id number] Peak Gr.19mmHg [id number] LEFT VENTRICLE The left ventricle is normal size. There is normal left ventricular wall thickness. The left ventricular function is normal. The left ventricular ejection fraction is within the normal range. There is normal LV segmental wall motion. Transmitral Doppler flow pattern is Grade II-pseudonormal filling dynamics. RIGHT VENTRICLE The right ventricle is normal size. There is normal right ventricular wall thickness. The right ventricular systolic function is normal. ATRIA The left atrium size is normal. The right atrium size is normal. AORTIC VALVE The aortic valve is mildly thickened. No aortic regurgitation is present. There is no aortic valvular stenosis. MITRAL VALVE The mitral valve is mildly thickened. Mitral regurgitation is trace. There is no mitral valve stenosis. TRICUSPID VALVE The tricuspid valve is normal in structure. There is mild tricuspid regurgitation. PULMONIC VALVE There is trace pulmonic valvular regurgitation. GREAT VESSELS The aortic root is normal in size. The IVC is normal in size and collapses >50% with inspiration. PERICARDIAL EFFUSION There is no pericardial effusion. <Conclusion> The left ventricle is normal size. There is normal left ventricular wall thickness. The left ventricular function is normal. The left ventricular ejection fraction is within the normal range. There is normal LV segmental wall motion. Transmitral Doppler flow pattern is Grade II-pseudonormal filling dynamics.
== END 2018-03-09 15:44 | disposition home or self-care (01) | DRG 315 ==
LOC: ED 10:18 → ERH 12:15 → 2RSO 15:14
PROVIDERS: ADMIT Internal Medicine; ATTEND Internal Medicine
DX: I95.9 Hypotension, unspecified (principal); C78.00 Secondary malignant neoplasm of unspecified lung; C78.7 Secondary malignant neoplasm of liver and intrahepatic bile duct; C79.51 Secondary malignant neoplasm of bone; N39.0 Urinary tract infection, site not specified; R64 Cachexia; Z68.1 Body mass index [BMI] 19.9 or less, adult; E86.0 Dehydration; C61 Malignant neoplasm of prostate; R55 Syncope and collapse; D64.9 Anemia, unspecified; S50.312A Abrasion of left elbow, initial encounter; W19.XXXA Unspecified fall, initial encounter; Y93.01 Activity, walking, marching and hiking; Y92.89 Other specified places as the place of occurrence of the external cause

== ENCOUNTER 2018-04-22 11:28 | Emergency (ER) | payer MEDICARE ==
[2018-04-22 11:29] VITALS: BMI 19.8
[2018-04-22 11:44] VITALS: RESP 18
[2018-04-22] MEDS ORDERED: Sodium Chloride 0.9% 1,000 ML IV STA (11:54)
--- NOTE | 2018-04-22 11:59 | ED PDOC ---
Arrival/HPI - General Chief Complaint: Syncope Time Seen by Provider: 04/22/18 11:48 Historian: Patient - History of Present Illness Narrative History of Present Illness (Text): 04/22/18 11:50 77 year old male, whose PMH includes metastasis CA to bone, liver, and lung, who presents to the emergency department s/p near syncopal episode [employer]. Patient reports he was at his PMD office when he was about to pass out. Patient states he did not eat anything this morning and is currently asymptomatic. Patient denies chest pain, shortness of breath, headache, dizziness, abdominal pain, nausea, vomiting, diarrhea, or other complaints. PMD Dr. Chni Time/Duration: Prior to Arrival Symptom Onset: Sudden Symptom Course: Improving Activities at Onset: Light Past Medical History - Provider Review Nursing Documentation Reviewed: Yes - Infectious Disease Hx of Infectious Diseases: None - Cardiac Hx Cardiac Disorders: No - Pulmonary Hx Respiratory Disorders: No - Neurological Hx Neurological Disorder: No Hx Seizures: (denies) - HEENT Hx HEENT Disorder: No - Renal Hx Renal Disorder: No - Endocrine/Metabolic Hx Endocrine Disorders: No - Hematological/Oncological Other/Comment: ct scan done in [place] as per pt/family,showing lung nodules , liver lesions, r kidney mass multiple lumbersacral verterbrae mets. unsure if pt and family know the results. pt denies cancer - Integumentary Hx Dermatological Disorder: Yes - Musculoskeletal/Rheumatological Hx Falls: Yes (yrs ago ad today) - Gastrointestinal Hx Gastrointestinal Disorders: Yes Other/Comment: colonoscopy done by dr briones in [facility] dx with diverticulosis colon polyp internal hemorrhoids and h pylori was sent to dr erwin by dr chin - Genitourinary/Gynecological Hx Hematuria: Yes Hx Prostate Problems: Yes (enlarged on flomax) Other/Comment: hx retention and hematuria tx in [place] for enlarged prostate , c/o retention and hematuriawas sent home with 2 [address] julio c , was to follow up in [place] tomorrow had appt with dr julien - Psychiatric Hx Psychophysiologic Disorder: No Hx Substance Use: No - Surgical History Hx Appendectomy: Yes Hx Orthopedic Surgery: Yes (Left Shoulder) Other/Comment: arthroscopic left shoulder sx fell in [facility] walking from work at the [employer] and fell "one week before 06/07" pt stated, hernia sx - Anesthesia Hx Anesthesia Reactions: No Hx Malignant Hyperthermia: No Family/Social History - Physician Review Nursing Documentation Reviewed: Yes Family/Social History: Unknown Family HX Smoking Status: Never Smoked Hx Alcohol Use: Yes (occasional wine) Frequency of alcohol use: Socially Hx Substance Use: No Allergies/Home Meds Allergies/Adverse Reactions: Allergies No Known Allergies Allergy (Verified 03/08/18 10:30) Home Medications: Home Meds Medication Instructions Recorded Confirmed Abiraterone Acetate [Zytiga] 750 mg PO DAILY 04/22/18 04/22/18 Degarelix Acetate [Firmagon] 04/22/18 Omeprazole Magnesium [Prilosec Otc] 40 mg PO DAILY 04/22/18 04/22/18 predniSONE [predniSONE Tab] 5 mg PO BID 04/22/18 04/22/18 Review of Systems - Physician Review All systems were reviewed & negative as marked: Yes - Review of Systems Respiratory: absent: SOB Cardiovascular: Syncope (near syncope ). absent: Chest Pain Neurological: absent: Dizziness Physical Exam Vital Signs Reviewed: Yes Vital Signs Temp Pulse Resp BP Pulse Ox 04/22/18 14:18 97.9 F 65 18 133/71 100 04/22/18 11:29 97.5 F L 56 L 18 128/66 99 Temperature: Afebrile Blood Pressure: Normal Pulse: Bradycardic Respiratory Rate: Normal Appearance: Positive for: Well-Appearing, Non-Toxic, Comfortable Pain Distress: None Mental Status: Positive for: Alert and Oriented X 3 Finger Stick Blood Glucose: 106 - Systems Exam Head: Present: Atraumatic, Normocephalic Pupils: Present: PERRL Extroacular Muscles: Present: EOMI Conjunctiva: Present: Normal Respiratory/Chest: Present: Clear to Auscultation, Good Air Exchange. No: Respiratory Distress, Accessory Muscle Use, Wheezes, Decreased Breath Sounds, Rales, Retracting, Rhonchi Cardiovascular: Present: Regular Rate and Rhythm, Normal S1, S2. No: Murmurs Abdomen: Present: Normal Bowel Sounds. No: Tenderness, Distention, Peritoneal Signs, Rebound, Guarding Neurological: Present: GCS=15, CN II-XII Intact, Speech Normal Skin: Present: Warm, Dry, Normal Color. No: Rashes Psychiatric: Present: Alert, Oriented x 3, Normal Insight, Normal Concentration Medical Decision Making ED Course and Treatment: 04/22/18 Impression: 77 year old male with unremarkable physical exam who presents to emergency department s/p near syncopal episode [employer]. Plan: -- Labs -- Sodium Chloride -- Urinalysis -- Reassess and disposition Progress Notes: Hydrated with 1L NS bolus. 04/22/18 13:45 On reevaluation the patient remains asymptomatic and is in no acute distress. I have discussed the results and plan with the patient, who expresses understanding. Patient given the opportunity to ask question, all questions were answered and there is agreement with the plan to discharge the patient home. Patient is stable for discharge and case was also discussed with Dr. Chin who agrees with d/c the patient with antibiotics for UTI. 04/22/18 EKG: Ordered, reviewed, and independently interpreted the EKG. Rate : 53 BPM Rhythm : NSR Interpretation : Normal interval, normal axis. RBBB. No ST elevations. T-wave inversion lead III. - Lab Interpretations Lab Results: 04/22/18 12:00 04/22/18 12:00 Lab Results 04/22/18 12:50: Urine Color Yellow, Urine Appearance Clear, Urine pH 6.0, Ur Specific [place] 1.015, Urine Protein 30 H, Urine Glucose (UA) Negative, Urine Ketones Negative, Urine Blood Trace-intact H, Urine Nitrate Negative, Urine Bilirubin Negative, Urine Urobilinogen 0.2, Ur Leukocyte Esterase Moderate H, Urine RBC 2 - 5, Urine WBC 10 - 15, Ur Epithelial Cells None, Amorphous Sediment Few, Urine Bacteria Many, Urine Other Uyeast 04/22/18 12:00: Sodium 142, Potassium 4.7, Chloride 105, Carbon Dioxide 24, Anion Gap 18, BUN 38 H, Creatinine 1.2, Est GFR ( Amer) > 60, Est GFR ( Non-Af Amer) 58, Random Glucose 109, Calcium 9.1 04/22/18 12:00: WBC 6.3, RBC 3.62, Hgb 11.3 L, Hct 32.2 L, MCV 89.0, MCH 31.2, MCHC 35.1, RDW 12.7, Plt Count 266, MPV 9.0, Gran % 66.0, Lymph % (Auto) 23.8, [place] % (Auto) 5.0, Eos % (Auto) 4.7, Baso % (Auto) 0.5, Gran # 4.18, Lymph # ( Auto) 1.5, [place] # (Auto) 0.3, Eos # (Auto) 0.3, Baso # (Auto) 0.03 04/22/18 11:44: POC Glucose (mg/dL) 106 I have reviewed the lab results: Yes - EKG Interpretation Interpreted by ED Physician: Yes Type: 12 lead EKG - Medication Orders Current Medication Orders: Discontinued Medications Sodium Chloride (Sodium Chloride 0.9%) 1,000 mls @ 999 mls/hr IV .Q1H1M STA Stop: 04/22/18 12:54 Last Admin: 04/22/18 12:11 Dose: 999 mls/hr eMAR Start Stop Document 04/22/18 12:11 SRE (Rec: 04/22/18 12:12 SRE [id number]) Intravenous Solution Start Date 04/22/18 Start Time 12:11 End Date 04/22/18 End time 13:15 Total Infusion Time 64 - Scribe Statement The provider has reviewed the documentation as recorded by the Gibson Hudson Provider Scribe Attestation: All medical record entries made by the Scribe were at my direction and personally dictated by me. I have reviewed the chart and agree that the record accurately reflects my personal performance of the history, physical exam, medical decision making, and the department course for this patient. I have also personally directed, reviewed, and agree with the discharge instructions and disposition. Disposition/Present on Arrival - Present on Arrival Any Indicators Present on Arrival: Yes History of DVT/PE: No History of Uncontrolled Diabetes: No Urinary Catheter: Yes History of Decub. Ulcer: No History Surgical Site Infection Following: None - Disposition Have Diagnosis and Disposition been Completed?: Yes Diagnosis: UTI (urinary tract infection), Pre-syncope Disposition: HOME/ ROUTINE Disposition Time: 14:19 Condition: STABLE Discharge Instructions (ExitCare): Urinary Tract Infections in Adults, Vasovagal Response (DC) Additional Instructions: CINDY OLIVERA, thank you for letting us take care of you today. Your provider was Sidra Esparza MD and you were treated for NEAR SYNCOPE. The emergency medical care you received today was directed at your acute symptoms. If you were prescribed any medication, please fill it and take as directed. It may take several days for your symptoms to resolve. Return to the Emergency Department if your symptoms worsen, do not improve, or if you have any other problems. Please contact your doctor or call one of the physicians/clinics you have been referred to that are listed on the Patient Visit Information form that is included in your discharge packet. Bring any paperwork you were given at discharge with you along with any medications you are taking to your follow up visit. Our treatment cannot replace ongoing medical care by a primary care provider outside of the emergency department. Thank you for allowing the [facility] team to be part of your care today. If you had an X-Ray or CT scan: A Radiologist will review the ED reading if any change in treatment is needed we will contact you. If you had a blood, urine, or wound culture: It will take several days for the results, if any change in treatment is needed we will contact you. If you had an STI test: It will take 48 hours for the results. Please call after 1 week if you have not heard back. Prescriptions: Nitrofurantoin Macrocrystals [Macrobid] 100 mg PO BID #14 cap Forms: [facility] (Latvian)
[2018-04-22 12:45] LABS: BASO # 0.03 K/mm3 (0.0-2.0); BASO % 0.5 % (0.0-3.0); EOS # 0.3 (0.0-0.7); EOS % 4.7 % (1.5-5.0); GRAN # 4.18 (1.4-6.5); HEMOGLOBIN 11.3 g/dL (14.0-18.0); LYMPH # 1.5 (1.2-3.4); LYMPH % 23.8 % (22.0-35.0); MEAN CORPUSCULAR HEMOGLOBIN 31.2 pg (25.0-35.0); MEAN CORPUSCULAR HGB CONC 35.1 g/dl (31.0-37.0); MONO # 0.3 (0.1-0.6); RBC 3.62 10^6/uL (3.5-6.1); RED CELL DISTRIBUTION WIDTH 12.7 % (11.5-14.5); WHITE BLOOD COUNT 6.3 10^3/ul (4.5-11.0)
[2018-04-22 12:59] LABS: URINE BILIRUBIN NEGATIVE (NEGATIVE); URINE BLOOD TRACE-INTACT (NEGATIVE); URINE GLUCOSE (UA) NEGATIVE (NEGATIVE); URINE LEUKOCYTE ESTERASE MODERATE Leu/uL (NEGATIVE); URINE PROTEIN 30 mg/dL (<30 mg/dL); URINE UROBILINOGEN 0.2 E.U./dL (<1 E.U./dL)
[2018-04-22 13:02] LABS: BLOOD UREA NITROGEN 38 mg/dL (7-21); CALCIUM 9.1 mg/dL (8.4-10.5); GFR AFRICAN-AMERICAN > 60; GFR NON-AFRICAN AMERICAN 58
[2018-04-22 13:14] LABS: URINE APPEARANCE CLEAR (CLEAR); URINE COLOR YELLOW (YELLOW)
[2018-04-22 13:16] LABS: URINE AMORPHOUS SEDIMENT FEW; URINE BACTERIA MANY (NEG)
[2018-04-22 14:19] VITALS: BP 133/71; PULSE 65; TEMP 97.9; O2SAT 100
--- NOTE | 2018-04-22 17:31 | CARD ---
APPROVED REPORT Date of service: 04/22/2018 EKG Measurement Heart [id number] <Conclusion> Sinus bradycardia Right bundle branch block Abnormal ECG
== END 2018-04-22 14:18 | disposition home or self-care (01) ==
LOC: ED 11:28
DX: N39.0 Urinary tract infection, site not specified (principal); R55 Syncope and collapse
CPT/HCPCS: 80048; 81001; 82948; 85025; 87086; 87181; 93005; 96360; 99285; J7030